=== PATIENT | female | born 1990 | race African-American/Black ===

== ENCOUNTER 2022-11-19 07:01 | Emergency (ER) | payer OTHER ==
[~2022-11-19] VITALS: Ht 167.6 cm; Wt 72.7 kg
[2022-11-19 07:46] VITALS: PULSE 107; RESP 19; O2SAT 99
[2022-11-19] MEDS ORDERED: FLUORESCEIN SOD OPTH TEST STRIP EACHEYE ONE (08:00)
[2022-11-19] MEDS ORDERED: [UNRECOGNIZED DRUG - CODE] EACHEYE (08:15)
[2022-11-19] MEDS ORDERED: IBUP1TAB5 PO (08:15)
[2022-11-19 08:31] VITALS: BP 118/87; PULSE 72; RESP 17; TEMP 97.8; O2SAT 100
== END 2022-11-19 08:32 | disposition home or self-care (01) ==
LOC: ER 07:01
DX: S05.02XA Injury of conjunctiva and corneal abrasion without foreign body, left eye, initial encounter (principal); I10 Essential (primary) hypertension; Z98.890 Other specified postprocedural states; X58.XXXA Exposure to other specified factors, initial encounter; Y93.89 Activity, other specified; Y92.89 Other specified places as the place of occurrence of the external cause; Y99.8 Other external cause status; F17.210 Nicotine dependence, cigarettes, uncomplicated

== ENCOUNTER 2023-02-03 10:51 | Emergency (ER) | payer OTHER ==
[~2023-02-03] VITALS: Ht 167.6 cm; Wt 68.1 kg
[~2023-02-03 10:51] MED LIST: IBUP1TAB5 PO; [UNRECOGNIZED DRUG - CODE] EACHEYE
[2023-02-03 11:16] LABS: Basophils # (auto) 0.1 10 ^3/uL (0-0.2); Basophils % (auto) 1.1 % (0.0-2.0); Eosinophils # (auto) 0.1 10 ^3/uL (0-0.8); Eosinophils % (auto) 1.3 % (0.0-7.0); Hematocrit 43.4 % (36.0-46.0); Hemoglobin 14.6 g/dL (12.2-16.2); Lymphocytes # (auto) 2.5 10 ^3/uL (0.4-5.4); Lymphocytes % (auto) 50.8 % (10.0-50.0); Mean Corpuscular Hemoglobin 33.3 pg (28.0-32.0); Mean Corpuscular Hgb Conc. 33.5 g/dL (32.0-36.0); Mean Corpuscular Volume 99.4 fL (80.0-100.0); Monocytes # (auto) 0.4 10 ^3/uL (0-1.3); Monocytes % (auto) 8.4 % (0.0-12.0); Neutrophils # (auto) 1.9 10 ^3/uL (1.6-8.6); Neutrophils % (auto) 38.4 % (37.0-80.0); Nucleated Red Blood Cells % 0.1 %; Red Blood Cells 4.37 10^6/uL (4.0-5.20); Red Cell Distribution Width 14.2 % (11.8-14.3)
[2023-02-03 11:31] LABS: Alanine Aminotransferase 18 U/L (7-40); Albumin 4.9 g/dL (3.2-4.8); Alkaline Phosphatase 95 U/L (46-116); Anion Gap 7 (5-15); Aspartate Aminotransferase 15 U/L (13-40); BUN/Creatinine Ratio 8.2 (10.0-20.0); Blood Urea Nitrogen 7 mg/dL (9-23); Carbon Dioxide 25 mmol/L (20-30); Chloride 107 mmol/L (98-107); Glucose 84 mg/dL (74-106); Potassium 3.8 mmol/L (3.5-5.1); Sodium 139 mmol/L (136-145)
[2023-02-03 11:32] LABS: Bilirubin, Total 0.6 mg/dL (0.2-1.0); Total Protein 8.1 g/dL (5.7-8.2)
[2023-02-03 12:05] LABS: Urine Bacteria NONE SEEN /hpf (None Seen); Urine Blood TRACE /uL (Negative); Urine Clarity Clear (Clear); Urine Color Colorless (Yellow); Urine Protein, UAD Negative (Negative); Urine Specific Gravity 1.009 (1.001-1.035); Urine Urobilinogen Normal (Negative); Urine WBC <1 /hpf (0 - 5); Urine pH 6.5 (5.0-8.0)
[2023-02-03] MEDS ORDERED: IBUPROFEN 600 MG TAB PO ONE (13:00)
[2023-02-03 14:04] LABS: INR 0.95 (0.9-1.15); Partial Thromboplastin Time 29.1 SEC (24.5-34.5)
[2023-02-03] MEDS ORDERED: medroxyPROGESTERone ACETATE 5 MG TAB PO ONE (17:00)
[2023-02-03] MEDS ORDERED: HYDROcodone-ACET 10/325MG TAB PO ONE (17:00)
[2023-02-03] MEDS ORDERED: NAPR-746 PO (17:21)
[2023-02-03] MEDS ORDERED: METO-281 PO (17:21)
[2023-02-03] MEDS ORDERED: MEDR5TAB28 PO (17:21)
[2023-02-03 17:31] VITALS: BP 126/68; PULSE 78; RESP 19; TEMP 98; O2SAT 96
== END 2023-02-03 17:30 | disposition home or self-care (01) ==
LOC: ER 10:51
DX: N93.8 Other specified abnormal uterine and vaginal bleeding (principal); R10.2 Pelvic and perineal pain; R94.31 Abnormal electrocardiogram [ECG] [EKG]; R07.9 Chest pain, unspecified
CPT/HCPCS: 36415; 76856; 80053; 81001; 84702; 85025; 85610; 85730; 86850; 86900; 86901; 93005

== ENCOUNTER 2023-02-17 23:56 | Emergency (ER) | payer MEDICAID, OTHER ==
[~2023-02-17] VITALS: Ht 167.6 cm; Wt 73.7 kg
[~2023-02-17 23:56] MED LIST changes: +MEDR5TAB28 PO; +METO-281 PO; +NAPR-746 PO
[2023-02-18 00:34] LABS: Basophils # (auto) 0.1 10 ^3/uL (0-0.2); Basophils % (auto) 1.2 % (0.0-2.0); Eosinophils # (auto) 0.1 10 ^3/uL (0-0.8); Eosinophils % (auto) 1.9 % (0.0-7.0); Hematocrit 42.6 % (36.0-46.0); Hemoglobin 14.4 g/dL (12.2-16.2); Lymphocytes # (auto) 3.3 10 ^3/uL (0.4-5.4); Lymphocytes % (auto) 53.5 % (10.0-50.0); Mean Corpuscular Hemoglobin 32.9 pg (28.0-32.0); Mean Corpuscular Hgb Conc. 33.8 g/dL (32.0-36.0); Mean Corpuscular Volume 97.3 fL (80.0-100.0); Monocytes # (auto) 0.5 10 ^3/uL (0-1.3); Monocytes % (auto) 8.4 % (0.0-12.0); Neutrophils # (auto) 2.2 10 ^3/uL (1.6-8.6); Nucleated Red Blood Cells % 0.1 %; Red Blood Cells 4.38 10^6/uL (4.0-5.20); Red Cell Distribution Width 14.2 % (11.8-14.3); White Blood Cell 6.2 10^3/uL (4.4-10.8)
[2023-02-18] MEDS ORDERED: MAALOX PLUS or MAALOX 30 ML PO ONE (00:45)
[2023-02-18] MEDS ORDERED: LIDOCAINE VISCOUS 2% 15ML UD PO ONE (00:45)
[2023-02-18] MEDS ORDERED: DONNATAL 5ml ORAL Elix (BELLADONNA ALK-PHENOBARB) PO ONE (00:45)
[2023-02-18 00:58] LABS: Alanine Aminotransferase 13 U/L (7-40); Albumin 4.7 g/dL (3.2-4.8); Alkaline Phosphatase 98 U/L (46-116); Anion Gap 7 (5-15); Aspartate Aminotransferase 12 U/L (13-40); BUN/Creatinine Ratio 6.5 (10.0-20.0); Blood Urea Nitrogen 6 mg/dL (9-23); Carbon Dioxide 26 mmol/L (20-30); Chloride 106 mmol/L (98-107); Glucose 94 mg/dL (74-106); Magnesium 1.8 mg/dL (1.6-2.6); Potassium 3.5 mmol/L (3.5-5.1); Sodium 139 mmol/L (136-145)
[2023-02-18 00:59] LABS: Bilirubin, Total 0.5 mg/dL (0.2-1.0); Total Protein 7.5 g/dL (5.7-8.2)
[2023-02-18 01:45] LABS: INR 0.98 (0.9-1.15); Partial Thromboplastin Time 26.7 SEC (24.5-34.5); Prothrombin Time 10.3 sec (9.3-11.8)
[2023-02-18 03:04] VITALS: BP 120/67; PULSE 60; RESP 18; TEMP 98; O2SAT 100
== END 2023-02-18 03:13 | disposition home or self-care (01) ==
LOC: ER 23:56
DX: R07.89 Other chest pain (principal); I10 Essential (primary) hypertension; F17.210 Nicotine dependence, cigarettes, uncomplicated; Z79.899 Other long term (current) drug therapy
CPT/HCPCS: 36415; 71045; 80053; 83735; 84484; 85025; 85610; 85730; 93005

== ENCOUNTER 2023-09-22 06:06 | Inpatient (IN) | payer MEDICAID, OTHER ==
[~2023-09-22] VITALS: Ht 167.6 cm; Wt 81.0 kg
[2023-09-22 06:55] LABS: Basophils # (auto) 0 10 ^3/uL (0-0.2); Eosinophils # (auto) 0.1 10 ^3/uL (0-0.8); Lymphocytes % (auto) 44.7 % (10.0-50.0); Monocytes # (auto) 0.5 10 ^3/uL (0-1.3); Neutrophils # (auto) 2.6 10 ^3/uL (1.6-8.6); Nucleated Red Blood Cells % 0.1 %
[2023-09-22 06:57] LABS: Basophils % (auto) 0.8 % (0.0-2.0); Eosinophils % (auto) 1.4 % (0.0-7.0); Hematocrit 41.9 % (36.0-46.0); Hemoglobin 14.4 g/dL (12.2-16.2); Lymphocytes # (auto) 2.7 10 ^3/uL (0.4-5.4); Mean Corpuscular Hemoglobin 34.5 pg (28.0-32.0); Mean Corpuscular Hgb Conc. 34.4 g/dL (32.0-36.0); Mean Corpuscular Volume 100.3 fL (80.0-100.0); Monocytes % (auto) 8.9 % (0.0-12.0); Neutrophils % (auto) 44.2 % (37.0-80.0); Red Blood Cells 4.18 10^6/uL (4.0-5.20); Red Cell Distribution Width 13.5 % (11.8-14.3)
[2023-09-22 06:59] LABS: Urine Bacteria None Seen /hpf (None Seen)
[2023-09-22 07:12] LABS: Urine Blood TRACE /uL (Negative); Urine Clarity Clear (Clear); Urine Color Light-Yellow (Yellow); Urine Protein, UAD TRACE (Negative); Urine Specific Gravity 1.025 (1.001-1.035); Urine Urobilinogen Normal (Negative); Urine WBC 1 /hpf (0 - 5); Urine pH 5.5 (5.0-9.0)
[2023-09-22 07:12] LABS: Alanine Aminotransferase 20 U/L (7-40); Albumin 4.7 g/dL (3.2-4.8); Alkaline Phosphatase 100 U/L (46-116); Anion Gap 3 (5-15); Aspartate Aminotransferase 17 U/L (13-40); BUN/Creatinine Ratio 11.3 (10.0-20.0); Bilirubin, Total 0.6 mg/dL (0.2-1.0); Blood Urea Nitrogen 11 mg/dL (9-23); Calcium 10.1 mg/dL (8.7-10.4); Carbon Dioxide 30 mmol/L (20-30); Chloride 105 mmol/L (98-107); Glucose 100 mg/dL (74-106); Potassium 3.9 mmol/L (3.5-5.1); Sodium 138 mmol/L (136-145); Total Protein 7.8 g/dL (5.7-8.2)
[2023-09-22] MEDS: NITROGLYCERIN 0.4 MG SL TAB SL ONE (07:48)
[2023-09-22 07:52] VITALS: PULSE 69; RESP 16; O2SAT 99
[2023-09-22] MEDS: ASPirin 325 MG TAB PO ONE (07:53)
[2023-09-22 09:50] VITALS: PULSE 60; RESP 16; O2SAT 100
[2023-09-22] MEDS: SODIUM CHLORIDE 0.9% 2,000 ML IV ONE (12:00)
[2023-09-22] MEDS ORDERED: MORPHINE SULFATE INJ 2 MG/ml SYRG IV PRN (12:00)
[2023-09-22] MEDS ORDERED: NITROGLYCERIN 0.4 MG SL TAB SL PRN (12:00)
[2023-09-22] MEDS: PANTOPRAZOLE 40 MG/10 ML VIAL INJ IV ONE (13:39)
[2023-09-22] MEDS: KETOROLAC TROMETH 30 MG/ML 1ML VIAL IV ONE (13:40)
[2023-09-22] MEDS: SODIUM CHLORIDE 0.9% 1,000 ML IV SCH (14:47)
[2023-09-22] MEDS: METOCLOPRAMIDE HCL 10 MG TAB PO SCH (14:47)
[2023-09-22] MEDS ORDERED: CLOTRIMAZOLE 1 % CREAM 15GM TOP ONE (16:15)
[2023-09-22] MEDS: CLOTRIMAZOLE 1 % CREAM 15GM TOP SCH (16:41)
[2023-09-22] MEDS ORDERED: IBUPROFEN 600 MG TAB PO PRN (21:00)
[2023-09-22] MEDS: KETOROLAC TROMETH 30 MG/ML 1ML VIAL IV PRN (21:28)
[2023-09-22 22:57] VITALS: BP 131/85; PULSE 66; RESP 17; TEMP 96.8; O2SAT 100
[2023-09-23] VITALS (7 sets, daily range): BP systolic 114–134; BP diastolic 53–93; PULSE 55–99; RESP 18–19; TEMP 97.4–98.6; O2SAT 98–100
[2023-09-23 07:11] LABS: Basophils # (auto) 0.1 10 ^3/uL (0-0.2); Basophils % (auto) 1.2 % (0.0-2.0); Eosinophils # (auto) 0.1 10 ^3/uL (0-0.8); Eosinophils % (auto) 1.1 % (0.0-7.0); Hematocrit 38.4 % (36.0-46.0); Hemoglobin 13.1 g/dL (12.2-16.2); Lymphocytes # (auto) 1.8 10 ^3/uL (0.4-5.4); Lymphocytes % (auto) 39.6 % (10.0-50.0); Mean Corpuscular Hgb Conc. 34.1 g/dL (32.0-36.0); Mean Corpuscular Volume 99.7 fL (80.0-100.0); Monocytes # (auto) 0.4 10 ^3/uL (0-1.3); Monocytes % (auto) 8.5 % (0.0-12.0); Neutrophils # (auto) 2.2 10 ^3/uL (1.6-8.6); Neutrophils % (auto) 49.6 % (37.0-80.0); Nucleated Red Blood Cells % 0.2 %; Red Blood Cells 3.85 10^6/uL (4.0-5.20); Red Cell Distribution Width 13.2 % (11.8-14.3); White Blood Cell 4.5 10^3/uL (4.4-10.8)
[2023-09-23 07:47] LABS: Alanine Aminotransferase 17 U/L (7-40); Alkaline Phosphatase 77 U/L (46-116); Anion Gap 4 (5-15); BUN/Creatinine Ratio 9.6 (10.0-20.0); Blood Urea Nitrogen 8 mg/dL (9-23); Calcium 8.9 mg/dL (8.5-10.1); Carbon Dioxide 24 mmol/L (20-30); Chloride 109 mmol/L (98-107); Glucose 93 mg/dL (74-106); Potassium 4.1 mmol/L (3.5-5.1); Sodium 137 mmol/L (136-145)
[2023-09-23 07:48] LABS: Albumin 3.7 g/dL (3.2-4.8); Aspartate Aminotransferase 15 U/L (13-40); Bilirubin, Total 0.8 mg/dL (0.2-1.0)
[2023-09-23] MEDS ORDERED: HYDR25TA5 GT (08:27)
[2023-09-23 08:45] LABS: Lipase 54 U/L (12-53)
[2023-09-23] MEDS: medroxyPROGESTERone ACETATE 5 MG TAB PO SCH (10:00)
[2023-09-23] MEDS: ENOXAPARIN SOD 40 MG/0.4 ML SYRINGE SC SCH (10:00)
[2023-09-23] MEDS: PANTOPRAZOLE 40 MG/10 ML VIAL INJ IV SCH (11:42)
[2023-09-24] VITALS (7 sets, daily range): BP systolic 112–163; BP diastolic 63–94; PULSE 57–86; RESP 16–20; TEMP 37.1; O2SAT 95–99
[2023-09-24] MEDS: MELATONIN 5 MG TAB PO ONE (00:26)
[2023-09-24 11:29] LABS: Basophils # (auto) 0 10 ^3/uL (0-0.2); Basophils % (auto) 1.1 % (0.0-2.0); Eosinophils # (auto) 0 10 ^3/uL (0-0.8); Eosinophils % (auto) 0.6 % (0.0-7.0); Hematocrit 39.6 % (36.0-46.0); Hemoglobin 13.2 g/dL (12.2-16.2); Lymphocytes # (auto) 1.7 10 ^3/uL (0.4-5.4); Lymphocytes % (auto) 38.7 % (10.0-50.0); Mean Corpuscular Hemoglobin 33.4 pg (28.0-32.0); Mean Corpuscular Hgb Conc. 33.3 g/dL (32.0-36.0); Mean Corpuscular Volume 100.3 fL (80.0-100.0); Monocytes # (auto) 0.3 10 ^3/uL (0-1.3); Monocytes % (auto) 7.3 % (0.0-12.0); Neutrophils # (auto) 2.3 10 ^3/uL (1.6-8.6); Neutrophils % (auto) 52.3 % (37.0-80.0); Nucleated Red Blood Cells % 0.2 %; Red Blood Cells 3.95 10^6/uL (4.0-5.20); Red Cell Distribution Width 13.5 % (11.8-14.3); White Blood Cell 4.5 10^3/uL (4.4-10.8)
[2023-09-24 11:53] LABS: Alanine Aminotransferase 20 U/L (7-40); Alkaline Phosphatase 78 U/L (46-116); Anion Gap 3 (5-15); Calcium 9.2 mg/dL (8.5-10.1); Carbon Dioxide 26 mmol/L (20-30); Chloride 108 mmol/L (98-107); Glucose 100 mg/dL (74-106); Sodium 137 mmol/L (136-145); Total Protein 6.5 g/dL (5.7-8.2)
[2023-09-24 11:54] LABS: LDL Cholesterol 96 mg/dL (< 100); Magnesium 1.9 mg/dL (1.6-2.6); Triglycerides 60 mg/dL (< 150)
[2023-09-24 11:55] LABS: Albumin 4.1 g/dL (3.2-4.8); Amylase 53 U/L (30-118); Aspartate Aminotransferase 15 U/L (13-40); CRP High Sensitivity < 0.02 mg/dL (<1.0)
[2023-09-24 11:56] LABS: Cholesterol 167 mg/dL (< 200); HDL Cholesterol 61 mg/dL (40-59)
[2023-09-24] MEDS ORDERED: MORPHINE SULFATE INJ 2 MG/ml SYRG IV PRN (12:00)
[2023-09-24 12:06] LABS: Blood Urea Nitrogen < 5 mg/dL (9-23)
[2023-09-24 13:12] LABS: Amphetamine Screen, Urine Neg (NEGATIVE); Barbiturate Scree,Urine Neg (NEGATIVE); Benzodiazephine Screen, Urine Neg (NEGATIVE); Cannabinoid Screen, Urine Pos (NEGATIVE); Cocaine Screen, Urine Neg (NEGATIVE); Opiate Scree,Urine Neg (NEGATIVE); Phencyclidine Screen, Urine Neg (NEGATIVE)
[2023-09-24] MEDS ORDERED: PANT40TA2 PO (15:21)
[2023-09-24] MEDS ORDERED: ACET-1882 PO (15:21)
[2023-09-24] MEDS: ACETAMINOPHEN 325 MG TAB PO PRN (16:08)
[2023-09-24] MEDS: hydroCHLOROthiazide 25 MG TAB PO SCH (16:20)
== END 2023-09-24 18:20 | disposition home or self-care (01) | DRG 282 ==
LOC: ER 06:06 → OVERFLOW 11:51 → WEST WING 22:27
PROVIDERS: ADMIT Internal Medicine; ATTEND Emergency Medicine
DX: K85.90 Acute pancreatitis without necrosis or infection, unspecified (principal); F10.20 Alcohol dependence, uncomplicated; F17.290 Nicotine dependence, other tobacco product, uncomplicated; F41.9 Anxiety disorder, unspecified; I10 Essential (primary) hypertension; Y90.9 Presence of alcohol in blood, level not specified; R07.9 Chest pain, unspecified; S80.12XA Contusion of left lower leg, initial encounter; X58.XXXA Exposure to other specified factors, initial encounter; Z79.899 Other long term (current) drug therapy; Y93.89 Activity, other specified; Y92.89 Other specified places as the place of occurrence of the external cause; Y99.8 Other external cause status
CPT/HCPCS: 36415; 71045; 74176; 76705; 80053; 80061; 80307; 81001; 81025; 82150; 83690; 83735; 84443; 84484; 85025; 86141; 93005; 96361; 96374; 96375; 96376; C9113; G0378; J1885

== ENCOUNTER 2024-06-26 09:46 | Emergency (ER) | payer OTHER ==
[~2024-06-26] VITALS: Ht 167.6 cm; Wt 81.8 kg
[~2024-06-26 09:46] MED LIST changes: +ACET-1882 PO; +HYDR25TA5 GT; -IBUP1TAB5 PO; -NAPR-746 PO; +PANT40TA2 PO; -[UNRECOGNIZED DRUG - CODE] EACHEYE
--- NOTE | 2024-06-26 10:11 | ED.PDOC ---
HPI Comments 34 y/o F, with PMHX of HTN and anxiety presents to the ED for CC of chest pain. Patient states, that she has been experiencing substernal chest pain that radiates to her back x1day. Patient describes to be pressure like in sensation. Patient endorses on, experiencing similar symptoms in the past but never to this extent. Patient drinks alcohol occasionally, denies tobacco or illicit drug usage. Patient denies palpitations, shortness of breath, abdominal pain, headache, nausea, or vomiting. No other associated symptoms, modifiers, recent injuries or sick contacts at this time. Chief Complaint: Chest Pain Time Seen by MD: 09:50 Primary Care Provider: unknown Reviewed Notes: Nurses Notes, Medications, Allergies Allergies: Coded Allergies: NO KNOWN ALLERGIES (Unverified , 11/19/22) Home Meds Active Scripts Pantoprazole Sodium Sesquihydr (Protonix) 40 Mg Tab, 40 MG PO DAILY for 30 Days, #30 TAB 2 Refills Prov:JOCELIN JONES RESIDENT 09/24/23 Acetaminophen (Acetaminophen) 325 Mg Tab, 650 MG PO Q6HP PRN for 5 Days, #40 TAB Prov:JOCELIN JONES RESIDENT 09/24/23 Metoclopramide Hcl (Reglan) 10 Mg Tab, 10 MG PO TID, #14 TAB Prov:MARTHA GURROLA MD 02/03/23 Medroxyprogesterone Acetate (PROVERA) 5 Mg Tab, 1 TAB PO DAILY, #10 TAB 11 Refills Prov:MARTHA GURROLA MD 02/03/23 Reported Medications Hctz (Hydrochlorothiazide) 25 Mg Tab, 12.5 MG GT DAILY, TAB 09/23/23 Information Source: Patient Mode of Arrival: Ambulatory Severity: Mild Timing: Days Duration: Since onset Prehospital treatment: None Location: Substernal Radiation: Back Onset: At Rest Cardiac Risk Factors: None PE Risk Factors: None History of: None Modifying Factors: Nothing Past Medical History PAST MEDICAL HISTORY: Anxiety, HTN Surgical History: Denies all surgeries LEATHER CRAFTER History: Denies all LEATHER CRAFTER Hx Family History Family History: Reviewed,noncontributory to illness Social History Smoker: Other Alcohol: Occasionally Drugs: Denies Drug Use Lives In: Home Constitutional: denies: chills, diaphoresis, fatigue, fever, malaise, sweats, weakness, others EENTM: denies: blurred vision, double vision, ear bleeding, ear discharge, ear drainage, ear pain, ear ringing, eye pain, eye redness, hearing loss, mouth pain, mouth swelling, nasal discharge, nose bleeding, nose congestion, nose aletha n, photophobia, tearing, throat pain, throat swelling, voice changes, others Respiratory: denies: cough, hemoptysis, orthopnea, SOB at rest, shortness of breath, SOB with excertion, stridor, wheezing, others Cardiovascular: reports: chest pain; denies: dizzy spells, diaphoresis, Dyspnea on exertion, edema, irregular heart beat, left arm pain, lightheadedness, palpitations, PND, syncope, others Gastrointestinal: denies: abdomen distended, abdominal pain, blood streaked bowels, constipated, diarrhea, dysphagia, difficulty swallowing, hematemesis, me nargis, nausea, poor appetite, poor fluid intake, rectal bleeding, rectal pain, vomiting, others Genitourinary: denies: abnormal vagina bleeding, burning, dyspareunia, dysuria, flank pain, frequency, hematuria, incontinence, pain, , vagina discharge, urgency, others Neurological: denies: dizziness, fainting, headache, left sided numbness, left sided weakness, numbness, paresthesia, pre-existing deficit, right sided numbness, right sided weakness, seizure, speech problems, tingling, tremors, weakness, others Musculoskeletal: reports: back pain; denies: gout, joint pain, joint swelling, muscle pain, muscle stiffness, neck pain, others Integumetry: denies: bruises, change in color, change in hair/nails, dryness, laceration, lesions, lumps, rash, wounds, others Allergic/Immunocompromised: denies: Difficulty Healing, Frequent Infections, Hives, Itching, others Hematologic/Lymphatic: denies: anemia, blood clots, easy bleeding, easy bruising, swollen glands, others Endocrine: denies: excessive hunger, excessive sweating, excessive thirst, excessive urination, flushing, intolerance to cold, intolerance to heat, unexplained weight gain, unexplained weight loss, others Psychiatric: denies: anxiety, bipolar disorder, depression, hopeless, panic disorder, schizophrenia, sleepless, suicidal, others All Other Systems: Reviewed and Negative Physical Exam General Appearance: Moderate Distress HEENT: Normal ENT Inspection, Pharynx Normal, TMs Normal Neck: Full Range of Motion, Non-Tender, Normal, Normal Inspection Respiratory: Chest Non-Tender, Lungs Clear, No Accessory Muscle Use, No Respiratory Distress, Normal Breath Sounds Cardiovascular: No Edema, No JVD, No Murmur, No Gallop, Normal Peripheral Pulses, Regular Rate/Rhythm Breast Exam: Deferred Gastrointestinal: No Organomegaly, Non Tender, No Pulsatile Mass, Normal Bowel Sounds, Soft Genitalia: Deferred Pelvic: Deferred Rectal: Deferred Extremities: No calf tenderness, Normal capillary refill, Normal inspection, Normal range of motion, Non-tender, No pedal edema Musculoskeletal : Apperance: Normal Neurologic: Alert, auction clerk II-XII nml as Tested, No Motor Deficits, Normal Affect, Normal Mood, No Sensory Deficits Cerebellar Function: Normal Reflexes: Normal Skin: Dry, Normal Color, Warm Peripheral Pulses: 3+ Radial (R), 3+ Radial (L) Lymphatic: No Adenopathy Was a procedure done? Was a procedure done?: No CP Differential Dx Differential Diagnosis: A-fib, A-Flutter, Angina, Anxiety / Panic Attack, Atrial Dysrhythmia, Electrolyte Disorder Differential Diagnosis: Chest Wall Pain, Costochondritis X-Ray, Labs, Meds, VS Vital Signs Date Time Temp Pulse Resp B/P (MAP) Pulse Ox O2 Delivery O2 Flow Rate FiO2 06/26/24 10:12 98.1 64 18 129/88 (102) 99 98.1 06/26/24 10:12 64 06/26/24 09:57 99.2 60 16 134/87 (103) 100 06/26/24 09:52 71 Lab Test 06/26/24 09:54 Range/Units White Blood Count Pending Red Blood Count Pending Hemoglobin Pending Hematocrit Pending Mean Corpuscular Volume Pending Mean Corpuscular Hemoglobin Pending Mean Corpuscular Hemoglobin Concent Pending Red Cell Distribution Width Pending Platelet Count Pending Mean Platelet Volume Pending Neutrophils (%) (Auto) Pending Lymphocytes (%) (Auto) Pending Monocytes (%) (Auto) Pending Basophils (%) (Auto) Pending Neutrophils # (Auto) Pending Lymphocytes # (Auto) Pending Monocytes # (Auto) Pending Sodium Level Pending Potassium Level Pending Chloride Level Pending Carbon Dioxide Level Pending Anion Gap Pending Blood Urea Nitrogen Pending Creatinine Pending Glomerular Filtration Rate Calc Pending BUN/Creatinine Ratio Pending Serum Glucose Pending Calcium Level Pending Troponin I High Sensitivity Pending Patient alert. Complaining of chest pain. Vitals stable. Answering all questions. EKG reviewed does not show any acute changes. No leg swelling pain No sign of distress. Explained to the patient. Continue monitoring. Time of 1ST Reevaluation: 10:20 Reevaluation 1ST: Improved Patient Education/Counseling: Diagnosis, Treatment Family Education/Counseling: No Family Present Departure 1 Departure Time of Disposition: 10:16 Impression: Primary Impression: Chest pain of unknown etiology Disposition: 01 HOME / SELF CARE / HOMELESS Condition: Good Discharged With: Self Critical Care Note Critical Care Time?: No Stability Stability form required: No Heart Score Heart Score: Heart Score Response (Comments) Value History Slightly Suspicious 0 EKG N/A 0 Age <45 0 Risk Factors 1 or 2 risk factors 1 Troponin Normal limit 0 Total 1 I personally scribed for CHERYLE BETANCUR MD ([email or web address]) on 06/26/24 at 10:11. Electronically submitted by Za Dejesus ([email or web address]). CHERYLE BETANCUR MD Jun 26, 2024 10:11
[2024-06-26 10:12] VITALS: BP 129/88; TEMP 98.1
[2024-06-26 10:15] LABS: Basophils # (auto) 0.1 10 ^3/uL (0-0.2); Basophils % (auto) 0.9 % (0.0-2.0); Eosinophils # (auto) 0 10 ^3/uL (0-0.8); Eosinophils % (auto) 0.5 % (0.0-7.0); Hematocrit 46.3 % (36.0-46.0); Hemoglobin 15.2 g/dL (12.2-16.2); Lymphocytes # (auto) 2.5 10 ^3/uL (0.4-5.4); Lymphocytes % (auto) 43.8 % (10.0-50.0); Mean Corpuscular Hgb Conc. 32.8 g/dL (32.0-36.0); Mean Corpuscular Volume 100.6 fL (80.0-100.0); Monocytes # (auto) 0.4 10 ^3/uL (0-1.3); Monocytes % (auto) 7.6 % (0.0-12.0); Neutrophils # (auto) 2.7 10 ^3/uL (1.6-8.6); Neutrophils % (auto) 47.2 % (37.0-80.0); Nucleated Red Blood Cells % 0.1 %; Platelet Count (auto) 278 10^3/uL (140-450); Red Cell Distribution Width 13.9 % (11.8-14.3); White Blood Cell 5.8 10^3/uL (4.4-10.8)
[2024-06-26 10:17] VITALS: PULSE 64; RESP 18; O2SAT 98
--- NOTE | 2024-06-26 10:25 | ECG ---
[facility] Test Date: 2024-06-26 Test Time: 09:52:48 Pat Name: CLAY ESTEVEZ Department: C Room: Gender: F Forms Analysis Manager: NORBERTO : 1990 Requested By: CHERYLE BETANCUR Order Number: [id number] Reading MD: Juan Clarke Measurements Intervals [place] Rate: 71 P: 62 CT: 120 QRS: 56 QRSD: 84 T: 30 QT: 380 QTc: 413 Interpretive Statements Sinus rhythm Electronically Signed On 06-28-2024 17:59:16 PST by Juan Clarke Please click the below link to view image of tracing.
[2024-06-26 10:29] LABS: Chloride 104 mmol/L (98-107); Potassium 3.8 mmol/L (3.5-5.1); Sodium 137 mmol/L (136-145)
[2024-06-26 10:30] LABS: Anion Gap 9 (5-15); Carbon Dioxide 24 mmol/L (20-31)
[2024-06-26 10:32] LABS: Calcium 11.2 mg/dL (8.7-10.4)
[2024-06-26 10:35] LABS: Glucose 84 mg/dL (74-106)
[2024-06-26 10:36] LABS: BUN/Creatinine Ratio 7.1 (10.0-20.0)
[2024-06-26 10:38] LABS: Blood Urea Nitrogen 7 mg/dL (9-23)
[2024-06-26 10:58] LABS: Urine Bacteria None Seen /hpf (None Seen)
[2024-06-26 11:02] LABS: Urine Blood Negative /uL (Negative); Urine Clarity Clear (Clear); Urine Color Colorless (Yellow); Urine Protein, UAD Negative (Negative); Urine Specific Gravity 1.005 (1.001-1.035); Urine Squamous Epithelial Cell FEW /hpf (<5); Urine Urobilinogen Normal (Negative); Urine WBC < 1 /HPF (0-5)
[2024-06-26] MEDS: LORazepam 0.5 MG TAB PO ONE (12:50)
[2024-06-26] MEDS: ASPirin 325 MG TAB PO ONE (12:50)
[2024-06-26] MEDS: NITROGLYCERIN 0.4 MG SL TAB SL ONE (12:54)
== END 2024-06-26 14:29 | disposition home or self-care (01) ==
LOC: ER 09:46
DX: R07.89 Other chest pain (principal); I10 Essential (primary) hypertension; Z79.899 Other long term (current) drug therapy
CPT/HCPCS: 36415; 80048; 81001; 84484; 85025; 93005